=== PATIENT | male | born 1990 | race Caucasian/White ===

== ENCOUNTER 2024-12-19 01:04 | Emergency (ER) | payer OTHER, SELFPAY ==
[2024-12-19 01:08] VITALS: BP 143/91
--- NOTE | 2024-12-19 01:50 | ED.SKININJ ---
HPI-Injury
General
Chief Complaint: Bite
Time Seen by Provider: 12/19/24 01:38
History of Present Illness-Injury
Initial Injury comments:
34-year-old male presents to the emergency department for evaluation of right upper lip laceration sustained when he was bitten by a dog. He does not know the whereabouts of the dog and is quite evasive when discussing the details that led to this.
Bleeding is now controlled. Last tetanus is unknown
Review of Systems
Review of Systems
Allergies reviewed?: Yes
Phy Exam
Physical Exam
Physical Exam:
. GEN: Well appearing, NAD, WDWN
HEENT: Oral mucosa moist, no scleral icterus. 1.5 cm vertical laceration to the right upper lip crossing the vermilion border, no intraoral involvement
Cardiac: Regular rate
Lung: No respiratory distress, no tachypnea
MSK: No gross deformity or injuries
Skin: Good color, no pallor or jaundice, no rashes
Neuro: AO x3, moves all extremities freely
Psych: Calm, cooperative
Course
Orders/Labs/Results
Orders:
Orders
12/19/24 01:51
Tetanus/Diphth/Acelpertussis [Adacel] 0.5 ml IM .ONCE ONE
12/19/24 02:10
Amoxicillin 875 mg/Clav 125 mg [Augmentin 875 mg/125 mg] 1 tablet PO NOW STA
Vital Signs
Initial and Last Documented VS:
Initial Vital Signs
Temp Pulse Resp BP Pulse Ox
97.7 F 67 14 143/91 95
12/19/24 01:08 12/19/24 01:08 12/19/24 01:08 12/19/24 01:08 12/19/24 01:08
Last Documented Vital Signs
Temp Pulse Resp BP Pulse Ox
97.7 F 67 14 143/91 95
12/19/24 01:08 12/19/24 01:08 12/19/24 01:08 12/19/24 01:08 12/19/24 01:51
Procedures
Laceration Closure
R upper lip:
Status of Wound: clean
Size of Wound in cm: 1.5
Description of Wound Edges: sharp
Preparation: cleaned with saline
Anesthesia: Digital-Regional (R infraalveolar block)
Revision/Debridement: irrigate-direct pressure
Wound exploration: explored to base- no FB and no tendon involvement
Type of Closure: layered closure
Skin Closure Material: 5-0 chromic gut
Number of sutures: 4
MDM/Problems Addressed
MDM/Problems Addressed:
Wound closed at the bedside with subcuticular sutures and 1 external suture as well as Steri-Strips. Will prophylax for infection with Augmentin. Tetanus status updated. The patient declines rabies series vaccinations despite unknown whereabouts
of the animal. He verbalizes knowing the risks and the high fatality rate of rabies.
*Pulse Oximetry
SaO2: 95
Oxygen Mode of Delivery: Room air
Patient hypoxic: no
*Critical Care Note
Total Time (30-74mins, 75-104mins- exclusive of procedures): Not Applicable
ED Attending Note
-
Portions of this chart may have been created with voice recognition software.� Occasional wrong word or��sound alike� substitutions may have occurred due to the inherent limitations of voice recognition software.
Discharge Plan
Departure
Patient Disposition: Home (Routine Discharge)
Date of Disposition: 12/19/24
Time of Disposition: 02:11
Patient with high blood pressure during this ER visit?: No
Discharge Problem:
Dog bite of face
Instructions: Animal Bites (DC)
Prescriptions:
New
amoxicillin-pot clavulanate 875-125 mg tablet
1 tab PO BID 5 Days Qty: 10 0RF
Referrals:
NONE,* [Family Provider, Internal Medicine]
Activity Restrictions/Additional Instructions:
Keep the wound dry for the next 24 hours then begin to wash gently with soap and water. The lower portion of the wound has an external suture that should come out in 1 week, you may try to pull on the exposed knot and this will likely result in the
suture coming out, if the suture does not come out return to the emergency department or follow-up in urgent care for removal
Clean the wound every day with soap and water until suture removal
Take the antibiotics and full as recommended
We discussed the potential need for rabies vaccination and treatment however he declined at this time. You may return if you reconsider at any point in the next 10 days
Interventions
Interventions:
*Risk Screen - Suicide Last Done: 12/19/24 01:08
*General Assessment Last Done: 12/19/24 01:08
*Neglect/Abuse Screening Last Done: 12/19/24 01:08
Discharge Date and Time
Print Language: SLOVAK
[2024-12-19] MEDS: ADACEL 0.5 ML IM (01:59)
[2024-12-19] MEDS: AUGMENTIN 875 MG/125 MG 1 TABLET PO (02:22)
== END 2024-12-19 02:29 | disposition home or self-care (01) ==
LOC: EMR 01:04
PROVIDERS: EMERGENCY PHYSICIAN Emergency Medicine
DX: S01.551A Open bite of lip, initial encounter (principal); W54.0XXA Bitten by dog, initial encounter; Z23 Encounter for immunization
CPT/HCPCS: 99283; 12051; 90471; 90715